=== PATIENT | male | born 1935 | race Caucasian/White ===

== ENCOUNTER → 2016-08-25 | Outpatient (CLI) | payer OTHER ==
[~2016-08-25] MED LIST: ASPI81TA28 PO; CHOL100027 PO; OLMETAB9 PO; PANT40TA PO; POTA1CAP2 PO
[2016-08-25 09:44] LABS: HEMATOCRIT 47.5 % (42-52); MEAN CELL VOLUME 94.6 fL (80-100); MEAN CORPUSCULAR HEMOGLOBIN 31.3 pg (25-34); MEAN CORPUSCULAR HGB CONC 33.1 g/dl (32-36); MEAN PLATELET VOLUME 9.3 fL (7.4-10.4); PLATELET COUNT 194 K/uL (130-400); RED BLOOD COUNT 5.02 M/uL (4.7-6.1); WHITE BLOOD COUNT 4.57 K/uL (4.8-10.8)
[2016-08-25 09:50] LABS: URINE APPEARANCE CLEAR (CLEAR); URINE BILIRUBIN NEG (NEG); URINE COLOR YELLOW; URINE NITRITE NEG (NEG); URINE SPECIFIC GRAVITY 1.021 (1.000-1.030); UROBILINOGEN NEG (NEG)
[2016-08-25 10:08] LABS: MANUAL MICROSCOPIC REQUIRED? NO; REVIEW REQ? NO
[2016-08-25 10:15] LABS: BLOOD UREA NITROGEN 26 mg/dl (7-18); BUN/CREATININE RATIO 17.5 (10-20); CALCIUM 8.6 mg/dl (8.5-10.1); CARBON DIOXIDE 25 mmol/L (21-32); CHLORIDE 109 mmol/L (98-107); GLUCOSE 95 mg/dl (70-99); MAGNESIUM 2.4 mg/dl (1.8-2.4); PHOSPHORUS 2.9 mg/dl (2.5-4.9); POTASSIUM 3.8 mmol/L (3.5-5.1); SODIUM 144 mmol/L (136-145)
== END | disposition home or self-care (01) ==
LOC: C.LAB1850 07:38
PROVIDERS: ATTEND Internal Medicine Nephrology
DX: N18.9 Chronic kidney disease, unspecified (principal)

== ENCOUNTER → 2017-03-15 | Outpatient (CLI) | payer OTHER ==
[2017-03-15 12:25] LABS: ALT/SGPT 24 U/L (12-78); AST/SGOT 15 U/L (15-37); BLOOD UREA NITROGEN 26 mg/dl (7-18); BUN/CREATININE RATIO 18.3 (10-20); CALCIUM 8.8 mg/dl (8.5-10.1); CARBON DIOXIDE 27 mmol/L (21-32); CHLORIDE 107 mmol/L (98-107); CREATININE 1.43 mg/dl (0.60-1.40); GLUCOSE 122 mg/dl (70-99); POTASSIUM 3.3 mmol/L (3.5-5.1); SODIUM 141 mmol/L (136-145)
[2017-03-15 12:26] LABS: ALKALINE PHOSPHATASE 64 U/L (45-117)
== END | disposition home or self-care (01) ==
LOC: C.LABBFT 10:36
PROVIDERS: ATTEND Internal Medicine
DX: Z00.00 Encounter for general adult medical examination without abnormal findings (principal); I12.9 Hypertensive chronic kidney disease with stage 1 through stage 4 chronic kidney disease, or unspecified chronic kidney disease; N18.9 Chronic kidney disease, unspecified

== ENCOUNTER → 2017-09-12 | Outpatient (CLI) | payer OTHER ==
[2017-09-12 13:14] LABS: BLOOD UREA NITROGEN 20 mg/dl (7-18); CALCIUM 8.7 mg/dl (8.5-10.1); CARBON DIOXIDE 26 mmol/L (21-32); CREATININE 1.57 mg/dl (0.60-1.40); GLUCOSE 88 mg/dl (70-99); POTASSIUM 3.8 mmol/L (3.5-5.1); SODIUM 139 mmol/L (136-145)
== END | disposition home or self-care (01) ==
LOC: C.LABBFT 09:58
PROVIDERS: ATTEND Internal Medicine
DX: Z00.00 Encounter for general adult medical examination without abnormal findings (principal); I12.9 Hypertensive chronic kidney disease with stage 1 through stage 4 chronic kidney disease, or unspecified chronic kidney disease; N18.9 Chronic kidney disease, unspecified

== ENCOUNTER 2021-11-18 05:15 | Inpatient (IN) ==
--- NOTE | 2021-11-15 16:03 | Anesthesiology Consultation ---
Date of Service November 15, 2021 Assessment & Plan (1) Encounter for pre-operative examination: - COVID screening: Per block mechanic on 11/15/2021: Travel screen negative, no known COVID-19 positive contacts or current COVID-19 related symptoms in past 2 weeks. Pt vaccinated. Surgeon arranging preop COVID testing, scheduled 11/16/2021. Awaiting results. Chart Review Chart Review: Acceptable Risk for Surgery and Patient NOT seen in Pre Admission Testing History Surgery Operation Date: 11/18/21 10:25 Proposed Procedures p Laparoscopic Sigmoid Colectomy - Nestor Grover DO s Open Umbilical Hernia Repair - Nestor Grover DO Height/Weight Height: 5 ft 9 in Weight: 77.111 kg Allergies Allergy/AdvReac Type Severity Reaction Status Date / Time No Known Drug Allergies Allergy Verified 11/15/21 15:37 Medications Home Medications Medication Instructions Recorded Confirmed Last Taken cholecalciferol (vitamin D3) 125 5,000 units PO DAILY cap 05/06/19 11/15/21 11/11/21 mcg (5,000 unit) capsule cyanocobalamin (vitamin B-12) 1,000 mcg IM MONTHLY ea 04/08/21 11/15/21 11/08/21 1,000 mcg/mL injection kit fluticasone propionate 50 See Rx Instructions INTRANASAL 08/23/21 11/15/21 11/11/21 mcg/actuation nasal DAILY #16 gm spray,suspension triamcinolone acetonide 0.1 % 1 applic TOPICAL DAILY PRN #30 g 08/23/21 11/15/21 11/08/21 topical cream potassium chloride 10 mEq 20 meq PO DAILY #180 cap 09/20/21 11/15/21 11/10/21 capsule,extended release polyethylene glycol 3350 17 17 g PO BID #238 g 11/12/21 11/15/21 Unknown gram/dose oral powder (Miralax) folic acid 1 mg tablet 1 mg PO QAM 11/15/21 11/15/21 Unknown olmesartan 40 mg-amlodipine 10 1 tab PO QAM 11/15/21 11/15/21 Unknown mg-hydrochlorothiazide 12.5 mg tablet Past Medical History Medical History Acid reflux disease CKD (chronic kidney disease) Colonic mass Essential tremor Hard of hearing History of squamous cell carcinoma w/ excision Hypertension Idiopathic polyneuropathy Sensorineural hearing loss of both ears Past Family History Family History Father Colorectal cancer Cancer Mother Hearing loss Brother Lung cancer Brother Prostate cancer Other No family history of adverse response to anesthesia No family history of bleeding disorder Past Surgical History Surgical History History of colonoscopy History of prostate surgery Dr. Mota 1999 History of tooth extraction Social History Smoking Status: Never smoker Do You Dip or Chew Tobacco: No Hx Alcohol Use: No Hx Substance Use: No substance use type: does not use Testing Electrocardiogram Date: 11/15/21 Sinus bradycardia, rate 57 bpm Left axis deviation Poor R wave progression, consider anterior OH vs lead placement vs LVH No significant change vs 12/23/2014 EKG
[2021-11-18] MEDS ORDERED: metroNIDAZOLE 500 MG/100 ML BAG IV SCH (06:00)
[2021-11-18] MEDS ORDERED: CIPROFLOXACIN / D5W 400 MG/200 ML BAG IV SCH (06:00)
[2021-11-18] MEDS ORDERED: HEPARIN SOD 5,000 UNIT/0.5 ML VIAL SQ SCH (06:00)
[2021-11-18] MEDS ORDERED: LR 15ML/HR IV SCH (06:00)
--- NOTE | 2021-11-18 06:59 | History & Physical Bridge Note ---
Date of Service November 18, 2021 History & Physical Bridge Note I have examined the patient, reviewed the History & Physical and in the interval since the performance of the History & Physical I have noted the following changes of clinical significance: no changes noted
[2021-11-18] MEDS ORDERED: ePHEDrine sulfate 50 MG/ML AMP IV PRN (07:00)
[2021-11-18] MEDS ORDERED: ONDANSETRON INJ 2 MG/ML 2 ML VIAL IV PRN (07:00)
[2021-11-18] MEDS ORDERED: ATROPINE SULFATE 0.1 MG/ML 10ML SYR IV PRN (07:00)
[2021-11-18] MEDS ORDERED: PROPOFOL IV EMULSION 10 MG/ML 20 ML VIAL IV ONE (07:03)
[2021-11-18] MEDS ORDERED: DEXAMETHASONE SOD INJ 4 MG/ML VIAL ONE (07:03)
[2021-11-18] MEDS ORDERED: LIDOCAINE 2% 20 MG/ML 5 ML SYR IV ONE (07:03)
[2021-11-18] MEDS ORDERED: ROCURONIUM BROMIDE 10 MG/ML 5 ML VIAL IV ONE ×3 (07:03→10:09)
[2021-11-18] MEDS ORDERED: ONDANSETRON INJ 2 MG/ML 2 ML VIAL ONE (07:03)
[2021-11-18] MEDS ORDERED: fentaNYL citrate 100 MCG/2 ML VIAL ONE ×2 (07:04→10:10)
[2021-11-18] MEDS ORDERED: BUPIVACAINE 0.5 % 5 MG/1 ML MPF 30ML VIAL ONE (07:12)
[2021-11-18] MEDS ORDERED: EPINEPHrine INJ 1 MG/ML AMP ONE (07:12)
[2021-11-18] MEDS ORDERED: GLYCOPYRROLATE 0.2 MG/ML VIAL ONE ×2 (08:42→10:32)
[2021-11-18] MEDS ORDERED: NEOSTIGMINE METHYLSULFATE 1 MG/ML 10ML VIAL ONE (10:32)
[2021-11-18] MEDS: fentaNYL citrate 100 MCG/2 ML VIAL IV PRN ×3 (11:25→11:35)
--- NOTE | 2021-11-18 11:57 | Anesthesiology Progress Note ---
Date of Service November 18, 2021 Anesthesia Post Procedure Vital Signs Vital Signs: Temp Pulse Pulse Resp BP BP Pulse Ox 11/18/21 11:40 97.3 F L 69 16 147/65 H 96 11/18/21 11:30 63 16 149/80 H 97 11/18/21 11:20 67 18 142/53 H 98 11/18/21 11:11 96.8 F L 72 14 148/74 H 97 11/18/21 06:04 97.7 F 57 L 18 157/92 H 97 O2 Del Method O2 Flow Rate 11/18/21 11:40 Nasal Cannula 3 11/18/21 11:30 Oxymask 5 11/18/21 11:20 Oxymask 5 11/18/21 11:11 Oxymask 5 11/18/21 06:04 Room Air Pain Intensity Abdomen: Pain Intensity: 5 Transfer of Care Handoff Completed per policy Notes Mental Status: alert / awake / arousable and participated in evaluation Patient Amnestic to Procedure: Yes Nausea / Vomiting: adequately controlled Pain: adequately controlled and improving with treatment Airway Patency, RR, SpO2: stable & adequate BP & HR: stable & adequate Hydration State: stable & adequate Anesthetic Complications: no major complications apparent and Pt Satisfied with anesthetic care
[2021-11-18] MEDS ORDERED: HYDROmorphone INJ 0.5 MG/0.5 ML SYR IV PRN (12:04)
[2021-11-18] MEDS: HYDROmorphone INJ 0.5 MG/0.5 ML SYR IV PRN ×2 (12:25→15:23)
[2021-11-18] MEDS: LACTATED RINGER'S 1,000 ML IV SCH (13:05)
[2021-11-18] MEDS: ACETAMINOPHEN 1,000 MG/100 ML VIAL IV SCH ×2 (13:07→22:13)
[2021-11-18] MEDS: metroNIDAZOLE 500 MG/100 ML BAG IV SCH ×2 (13:27→22:17)
--- NOTE | 2021-11-18 16:25 | Operative Report ---
PG Post Operative Report Pre & Post Diagnosis Operation Date: 11/18/21 07:15 Pre-Op Diagnosis: Colonic Mass, Umbilical Hernia Post-Op Diagnosis: Colonic Mass, Umbilical Hernia I identified the patient and participated in the time-out.: Yes Procedure Operation Date: 11/18/21 07:15 Actual Procedures p Laparoscopic Low Anterior Resection(Not Applicable) - Nestor Grover DO s Open Umbilical Hernia Repair(Not Applicable) - Nestor Grover DO Surgeon Nestor Grover DO Inspector Soldering esha Torres Estimated Blood Loss 50 Findings Consistent with Post-Op Diagnosis Specimens 1. sigmoid/rectosigmoid colon 2. additional proximal margins 3. additional distal margins Description of Procedure After informed consent was obtained the patient was taken to the operating room and placed in supine position. After successful intubation the patient was placed in the low lithotomy position. The abdomen was shaved. The perineum as well as the abdomen were sterilely prepped and draped in usual fashion. I began with a supraumbilical incision 11 blade scalpel. This was carried down through the soft tissues and cautery. We took down the umbilical stalk using cautery exposing a small garden-variety umbilical defect. I excised the hernia sac in 360 degrees. I then placed two #0 Vicryl stay sutures on either side of the defect. A 12 mm on trocar was placed and the abdomen insufflated to 18 mmHg. Laparoscope was inserted and the abdomen examined in 360 degrees. There was no evidence of any metastatic disease. A right lower quadrant 12 mm port a right mid abdominal 5 mm port and a left lower quadrant 5 mm port were all placed under direct vision. The patient was then placed in a steep Trendelenburg position. I was able to to readily identify both tattoo dyson. 1 was proximal to the mass and one was distal to the mass. The distal kizzy was more distal than I thought and was in the region of the rectosigmoid. I began by using traction countertraction and the harmonic scalpel to take down the white line of [place] laterally. I carried this superiorly almost to the splenic flexure. I carried it distally down over the sacral promontory down past the peritoneal reflection onto the rectum itself. Once we had this mobilized I then took down the mesentery starting at the proximal tattoo kizzy. Again I used a harmonic scalpel to take down this mesentery down to the rectum itself. I used several firings of a MIKE purple cartridge linear stapler to transect the colon just proximal to the proximal tattoo kizzy. Once we did this this allowed me to mobilize the specimen better. I continued to use a harmonic scalpel to take down the mesentery staying as low as possible. The mesentery itself was rather thick. There was a lot of fat wrapping. There were also a large amount of diverticuli. Eventually I was able to transect the colon just distal to the distal tattoo kizzy again using MIKE purple cartridge linear staplers. The remaining left colon was able to easily reach down over the sacral promontory without tension. Next we extended the left lower quadrant incision after removing the trocar. We also divided the fascia and were able to deliver the specimen. I did open it on the back table to ensure that we had enough proximal and distal margins. It appeared we had negative margins grossly. I changed my gloves. Next we delivered the proximal staple line out through the same incision. I used 2-0 silk to create a handsewn pursestring device. We ended up doing this several times as we kept encountering diverticuli which will be incorporated in the anastomosis. We kept excising proximal colon and sent this as additional proximal margin. Eventually I was able to get a pursestring w ithout incorporating any diverticuli. We estimated the size of the lumen to be 28 mm. A 28 mm anvil was placed into the end of the colon and the pursestring secured. The end was placed back down into the abdominal cavity. We changed our gloves again. We then closed the fascia using 0 PDS in running fashion. We reinsufflated the abdomen. We used sizers to come in the rectal stump followed by the handle of the 28 mm circular stapler. The spike was deployed anterior to the rectal stump staple line. I then connected the anvil to the handle. They were secured together. Again there did not appear to be any tension on the anastomosis. The stapler was fired creating a functional end-to-end anastomosis. Both donuts were intact. We did send the distal donut as additional distal margin. I inflated the anastomosis under water with a rigid proctoscope. There was no evidence of an anastomotic leak. There was adequate hemostasis. We thoroughly irrigated the pelvis and lower abdomen. A 10 flat David-Diaz drain was brought in through one of the port sites secured to the skin using 2-0 silk. It was placed over the pelvic brim. No other abnormalities were identified. The remainder of the trochars were removed. The umbilical hernia was closed using 0 Vicryl in simple interrupted fashion. The umbilical stalk was reattached using 0 Vicryl as well. Wounds were irrigated and closed using skin zachary. Left lower quadrant incision was closed over quarter inch [place] drain. Sterile dressings were applied. The patient was awakened extubated and transferred recovery in stable condition. My physician assistant corporation counsel was present for the entire case. He was instrumental in assisting throughout the case running the camera assisting with the anastomosis wound closure and dressing placement. I attest to the content of the Intraoperative Record and any orders documented therein. Any exceptions are noted below.
[2021-11-18] MEDS: CIPROFLOXACIN / D5W 400 MG/200 ML BAG IV SCH (18:51)
[2021-11-19] MEDS: LACTATED RINGER'S 1,000 ML IV SCH ×4 (03:35→21:02)
[2021-11-19] MEDS: ACETAMINOPHEN 1,000 MG/100 ML VIAL IV SCH ×3 (05:42→21:02)
[2021-11-19] MEDS: metroNIDAZOLE 500 MG/100 ML BAG IV SCH (05:43)
[2021-11-19] MEDS: CIPROFLOXACIN / D5W 400 MG/200 ML BAG IV SCH (06:11)
[2021-11-19 07:32] LABS: Basophils # (auto) 0.02 K/uL (0-0.2); Basophils % (auto) 0.2 %; Eosinophils # (auto) 0.01 K/uL (0-0.50); Eosinophils % (auto) 0.1 %; Hematocrit (blood only) 38.9 % (40.1-51.0); Hemoglobin 12.8 g/dl (14.0-18.0); Immature Granulocytes # (auto) 0.04 K/uL (0.00-0.02); Immature Granulocytes % (auto) 0.4 %; Lymphocytes # (auto) 1.16 K/uL (1.2-3.4); Lymphocytes % (auto) 11.3 %; Mean Corpuscular Hgb Conc 32.9 g/dL (32.0-36.0); Mean Corpuscular Volume 91.1 fL (80.0-100.0); Mean Platelet Volume 9.1 fL (9.4-12.4); Monocytes # (auto) 0.73 K/uL (0.24-0.82); Monocytes % (auto) 7.1 %; Neutrophils # (auto) 8.32 K/uL (1.4-6.5); Neutrophils % (auto) 80.9 %; Platelet Count 171 K/uL (130-400); RDW Standard Deviation 42.9 fL (36.4-46.3); Red Blood Count 4.27 M/uL (4.63-6.08); White Blood Count 10.28 K/ul (4.8-10.8)
[2021-11-19 07:57] LABS: BUN Creatinine Ratio 13.4 (10-20); Creatinine Clr Calc Pharmacy 33.8 ml/min; Est GFR (African American) 45.6 ml/min; Est GFR (Non-African American) 39.3 ml/min; Potassium 3.6 mmol/L (3.5-5.1)
[2021-11-19] MEDS: ENOXAPARIN INJ 30 MG/0.3 ML SYR SQ SCH (08:20)
--- NOTE | 2021-11-19 10:10 | Surgery Progress Note ---
Date of Service November 19, 2021 Assessment & Plan (1) Colonic mass: Plan: POD 1 lap LAR Slight drop in H&H, vitals stable can start clears consider removing buenrostro later or in AM as above. doing great. keep buenrostro one more day stay on clears until bowel fx Dr. Beverly covering for weekend. Admission and Anticipated Discharge Date Admission Date: November 18, 2021 Subjective little nausea, minimal pain, anxious to get moving Physical Exam Constitutional: WD/WN, vitals as above Gastrointestinal (Abdomen): Inspection/Auscultation: + abdominal surgical incision (dressing dry) and + abdominal surgical drain present (20 cc overnight); abdomen not distended Percussion/Palpation: abdomen soft UOP 250 overnight Results & Data ([facility]) Vital Signs (Past 12 Hours) Vital Signs Temp Pulse Resp BP Pulse Ox 11/19/21 07:44 36.3 C L 56 L 16 124/70 94 PG Care Time/CCT Total # of Minutes Spent Total Time Spent with Patient: Total time spent is greater than 50% in coordination of care (as documented) at patient's floor/unit and/or counseling patient: Coding Level of Care Code None Diagnoses Colonic mass K63.89
[2021-11-20] MEDS: ONDANSETRON INJ 2 MG/ML 2 ML VIAL IV PRN ×3 (01:29→12:14)
[2021-11-20] MEDS: LACTATED RINGER'S 1,000 ML IV SCH (05:25)
[2021-11-20] MEDS: ACETAMINOPHEN 1,000 MG/100 ML VIAL IV SCH (05:25)
[2021-11-20 07:28] LABS: Basophils # (auto) 0.01 K/uL (0-0.2); Basophils % (auto) 0.1 %; Eosinophils % (auto) 1.2 %; Hematocrit (blood only) 37.9 % (40.1-51.0); Hemoglobin 12.4 g/dl (14.0-18.0); Immature Granulocytes # (auto) 0.06 K/uL (0.00-0.02); Immature Granulocytes % (auto) 0.7 %; Lymphocytes # (auto) 0.91 K/uL (1.2-3.4); Lymphocytes % (auto) 10.5 %; Mean Corpuscular Hemoglobin 31.1 pg (25.0-34.0); Mean Corpuscular Hgb Conc 32.7 g/dL (32.0-36.0); Mean Platelet Volume 9.3 fL (9.4-12.4); Monocytes # (auto) 0.59 K/uL (0.24-0.82); Monocytes % (auto) 6.8 %; Neutrophils # (auto) 6.99 K/uL (1.4-6.5); Neutrophils % (auto) 80.7 %; Platelet Count 165 K/uL (130-400); RDW Coefficient of Variation 13.2 % (11.5-14.5); RDW Standard Deviation 45.7 fL (36.4-46.3); Red Blood Count 3.99 M/uL (4.63-6.08); White Blood Count 8.66 K/ul (4.8-10.8)
[2021-11-20] MEDS: ENOXAPARIN INJ 30 MG/0.3 ML SYR SQ SCH (07:37)
[2021-11-20 07:47] LABS: Creatinine Clr Calc Pharmacy 39.9 ml/min; Est GFR (African American) 55.7 ml/min; Est GFR (Non-African American) 48.1 ml/min; Potassium 3.5 mmol/L (3.5-5.1)
[2021-11-20] MEDS: NSS + 20MEQ KCL 20 MEQ/1,000 ML BAG IV SCH (10:10)
--- NOTE | 2021-11-20 13:28 | Surgery Progress Note ---
Date of Service November 20, 2021 Assessment & Plan (1) Colonic mass: Plan: F/U S/P Laparoscopic Low Anterior Resection,Open Umbilical Hernia Repair, POD 2 pt is doing fine, passed gas and 2 small BM today, little nausea, no vomiting, no fever, plan, D/C jesús, continue treatment, repeat labs in morning, OOB, will F/U, Admission and Anticipated Discharge Date Admission Date: November 18, 2021 Subjective little nausea, minimal pain, anxious to get moving 11/20/2021, DR. Beverly F/U S/P Laparoscopic Low Anterior Resection,Open Umbilical Hernia Repair, POD 2 pt is doing fine, passed gas and 2 small BM today, little nausea, no vomiting, no fever, Physical Exam Constitutional: WD/WN, vitals as above Eyes: PERRL, conjunctivae normal, anicteric sclerae Neck: trachea midline, no thyromegaly Respiratory: normal respiratory effort, lungs clear to auscultation Cardiovascular: RRR, no murmur, no edema Gastrointestinal (Abdomen): soft, no tenderness, all incisions intact, no redness, BS + Neurologic: patellar DTR's 2+ bilat, sensation intact Psychiatric: A+Ox3, euthymic affect Results & Data ([facility]) Vital Signs (Past 12 Hours) Vital Signs Temp Pulse Resp BP Pulse Ox O2 Del Method 11/20/21 07:17 36.9 C 58 L 20 159/81 H 94 Room Air Laboratory Results Abnormal lab results 11/20/21 11/20/21 Range/Units 06:59 06:59 RBC 3.99 L (4.63-6.08) M/uL Hgb 12.4 L (14.0-18.0) g/dl Hct 37.9 L (40.1-51.0) % MPV 9.3 L (9.4-12.4) fL Neut # (Auto) 6.99 H (1.4-6.5) K/uL Lymph # (Auto) 0.91 L (1.2-3.4) K/uL Immature Gran # (Auto) 0.06 H (0.00-0.02) K/uL Glucose 101 H (70-99(Fasting)) mg/dl Calcium 8.0 L (8.5-10.1) mg/dl
[2021-11-20] MEDS: HYDROmorphone INJ 0.5 MG/0.5 ML SYR IV PRN ×2 (15:22→22:55)
[2021-11-21] MEDS: NSS + 20MEQ KCL 20 MEQ/1,000 ML BAG IV SCH (05:35)
[2021-11-21 07:34] LABS: Basophils # (auto) 0.02 K/uL (0-0.2); Basophils % (auto) 0.3 %; Eosinophils # (auto) 0.25 K/uL (0-0.50); Hemoglobin 11.3 g/dl (14.0-18.0); Immature Granulocytes # (auto) 0.01 K/uL (0.00-0.02); Immature Granulocytes % (auto) 0.2 %; Lymphocytes # (auto) 0.93 K/uL (1.2-3.4); Mean Corpuscular Hemoglobin 31.2 pg (25.0-34.0); Mean Corpuscular Hgb Conc 32.3 g/dL (32.0-36.0); Mean Corpuscular Volume 96.7 fL (80.0-100.0); Mean Platelet Volume 9.2 fL (9.4-12.4); Monocytes % (auto) 8.1 %; Neutrophils # (auto) 4.49 K/uL (1.4-6.5); Neutrophils % (auto) 72.4 %; Platelet Count 146 K/uL (130-400); RDW Coefficient of Variation 13.1 % (11.5-14.5); RDW Standard Deviation 46.5 fL (36.4-46.3); Red Blood Count 3.62 M/uL (4.63-6.08)
[2021-11-21] MEDS: ENOXAPARIN INJ 30 MG/0.3 ML SYR SQ SCH (08:05)
[2021-11-21] MEDS: ONDANSETRON INJ 2 MG/ML 2 ML VIAL IV PRN ×3 (08:06→17:16)
[2021-11-21 09:13] LABS: BUN Creatinine Ratio 9.8 (10-20); Calcium 7.8 mg/dl (8.5-10.1); Creatinine Clr Calc Pharmacy 43.1 ml/min; Est GFR (African American) 61.2 ml/min; Est GFR (Non-African American) 52.8 ml/min; Potassium 3.6 mmol/L (3.5-5.1)
--- NOTE | 2021-11-21 12:33 | Surgery Progress Note ---
Date of Service November 21, 2021 Assessment & Plan (1) Colonic mass: Plan: F/U S/P Laparoscopic Low Anterior Resection,Open Umbilical Hernia Repair, POD 2 pt is doing fine, passed gas and 2 small BM today, little nausea, no vomiting, no fever, plan, D/C lilianey, continue treatment, repeat labs in morning, OOB, will F/U, 11/21/2021 12:31PM F/U S/P Laparoscopic Low Anterior Resection,Open Umbilical Hernia Repair, POD 3 pt is doing fine, passed gas, little nausea, no vomiting, no fever, plan, full liquid diet continue treatment, repeat labs in morning, OOB, will F/U, Admission and Anticipated Discharge Date Admission Date: November 18, 2021 Subjective little nausea, minimal pain, anxious to get moving 11/20/2021, DR. Beverly F/U S/P Laparoscopic Low Anterior Resection,Open Umbilical Hernia Repair, POD 2 pt is doing fine, passed gas and 2 small BM today, little nausea, no vomiting, no fever, 11/21/2021 12:29PM, Dr. Beverly F/U S/P Laparoscopic Low Anterior Resection,Open Umbilical Hernia Repair, POD 3 pt is doing fine, tolerated clear diet, no vomiting, passed gas, no fever, Physical Exam Constitutional: WD/WN, vitals as above Eyes: PERRL, conjunctivae normal, anicteric sclerae Neck: trachea midline, no thyromegaly Respiratory: normal respiratory effort, lungs clear to auscultation Cardiovascular: RRR, no murmur, no edema Gastrointestinal (Abdomen): soft, mild distend, no tenderness, BS +, Neurologic: patellar DTR's 2+ bilat, sensation intact Psychiatric: A+Ox3, euthymic affect Results & Data ([facility]) Vital Signs (Past 12 Hours) Vital Signs Temp Pulse Resp BP Pulse Ox O2 Del Method 11/21/21 07:32 36.7 C 56 L 20 152/70 H 93 Room Air Laboratory Results Abnormal lab results 11/21/21 11/21/21 Range/Units 06:50 08:45 RBC 3.62 L (4.63-6.08) M/uL Hgb 11.3 L (14.0-18.0) g/dl Hct 35.0 L (40.1-51.0) % RDW Std Deviation 46.5 H (36.4-46.3) fL MPV 9.2 L (9.4-12.4) fL Lymph # (Auto) 0.93 L (1.2-3.4) K/uL Chloride 108 H (98-107) mmol/L Anion Gap 2 L (3-11) BUN/Creatinine Ratio 9.8 L (10-20) Glucose 127 H (70-99(Fasting)) mg/dl Calcium 7.8 L (8.5-10.1) mg/dl
[2021-11-22] MEDS: HYDROmorphone INJ 0.5 MG/0.5 ML SYR IV PRN (00:13)
[2021-11-22] MEDS: NSS + 20MEQ KCL 20 MEQ/1,000 ML BAG IV SCH (00:13)
[2021-11-22] MEDS: ENOXAPARIN INJ 30 MG/0.3 ML SYR SQ SCH (08:10)
[2021-11-22] MEDS: ONDANSETRON INJ 2 MG/ML 2 ML VIAL IV PRN (08:10)
--- NOTE | 2021-11-22 08:21 | Surgery Progress Note ---
Date of Service November 22, 2021 Assessment & Plan (1) Colonic mass: Plan: POD 4 lap LAR labs pending will advance to full liquids stop IVF As above. Had some loose bowel movements over the weekend. Feeling well. Potential discharge tomorrow or Monday. CRISTI with scant serous fluid Admission and Anticipated Discharge Date Admission Date: November 18, 2021 Subjective flatus, some liquid BM, tolerating clears Physical Exam Gastrointestinal (Abdomen): Inspection/Auscultation: + abdomen distended, + abdominal surgical incision (dry) and + abdominal surgical drain present (20-25 per shift) Percussion/Palpation: abdomen soft Results & Data ([facility]) Vital Signs (Past 12 Hours) Vital Signs Temp Pulse Pulse Resp BP Pulse Ox O2 Del Method 11/22/21 07:33 36.8 C 51 L 16 164/74 H 97 Room Air 11/21/21 23:19 36.6 C 53 L 18 154/75 H 96 Room Air PG Care Time/CCT Total # of Minutes Spent Total Time Spent with Patient: Total time spent is greater than 50% in coordination of care (as documented) at patient's floor/unit and/or counseling patient: Coding Level of Care Code None Diagnoses Colonic mass K63.89
[2021-11-22] MEDS ORDERED: HYDROCODONE/ACETAMOPHEN 5/325MG TAB PO PRN ×2 (08:24)
[2021-11-22 09:20] LABS: Basophils # (auto) 0.02 K/uL (0-0.2); Basophils % (auto) 0.4 %; Eosinophils # (auto) 0.31 K/uL (0-0.50); Eosinophils % (auto) 5.6 %; Hemoglobin 12.9 g/dl (14.0-18.0); Immature Granulocytes # (auto) 0.01 K/uL (0.00-0.02); Immature Granulocytes % (auto) 0.2 %; Lymphocytes # (auto) 0.84 K/uL (1.2-3.4); Lymphocytes % (auto) 15.2 %; Mean Corpuscular Hemoglobin 30.6 pg (25.0-34.0); Mean Corpuscular Hgb Conc 32.3 g/dL (32.0-36.0); Mean Corpuscular Volume 94.8 fL (80.0-100.0); Mean Platelet Volume 9.5 fL (9.4-12.4); Monocytes # (auto) 0.23 K/uL (0.24-0.82); Monocytes % (auto) 4.2 %; Neutrophils % (auto) 74.4 %; Platelet Count 181 K/uL (130-400); RDW Coefficient of Variation 13.1 % (11.5-14.5); RDW Standard Deviation 45.6 fL (36.4-46.3); Red Blood Count 4.22 M/uL (4.63-6.08); White Blood Count 5.51 K/ul (4.8-10.8)
[2021-11-22] MEDS: amLODIPine BESYLATE 5 MG TAB PO SCH (09:28)
[2021-11-22] MEDS: POTASSIUM CHLORIDE CRTAB 20 MEQ TABCR PO SCH (09:29)
[2021-11-22] MEDS: OLMESARTAN MEDOXOMIL 40 MG TAB PO SCH (09:29)
[2021-11-22 09:36] LABS: BUN Creatinine Ratio 8.3 (10-20); Calcium 7.7 mg/dl (8.5-10.1); Creatinine Clr Calc Pharmacy 43.8 ml/min; Est GFR (African American) 62.5 ml/min; Est GFR (Non-African American) 53.9 ml/min; Potassium 3.5 mmol/L (3.5-5.1)
[2021-11-23] MEDS: amLODIPine BESYLATE 5 MG TAB PO SCH (08:21)
[2021-11-23] MEDS: OLMESARTAN MEDOXOMIL 40 MG TAB PO SCH (08:21)
[2021-11-23] MEDS: POTASSIUM CHLORIDE CRTAB 20 MEQ TABCR PO SCH (08:21)
[2021-11-23] MEDS: ENOXAPARIN INJ 30 MG/0.3 ML SYR SQ SCH (08:21)
--- NOTE | 2021-11-23 08:48 | Surgery Progress Note ---
Date of Service November 23, 2021 Assessment & Plan (1) Colonic mass: Plan: POD 5 lap LAR Patient clinically doing well + bowel function noted will advance to low fiber today, should continue this diet over next few weeks CRISTI serosang, will d/c both CRISTI and abigail today If pain controlled and tolerates diet may dispo to home this afternoon Pathology results reviewed by Dr. Grover Went over dispo instructions with pt in detail. f/u in clinic with Dr. Grover next week Admission and Anticipated Discharge Date Admission Date: November 18, 2021 Subjective Patient is feeling well. Tolerating liquid diet. Saying he feels ready to go home. Physical Exam Physical Exam: awake/alert Gastrointestinal (Abdomen): Inspection/Auscultation: + abdominal surgical incision (c/d/i) Percussion/Palpation: abdomen soft CRISTI serosang. abigail in place Results & Data ([facility]) Vital Signs (Past 12 Hours) Vital Signs Temp Pulse Resp BP Pulse Ox O2 Del Method 11/23/21 07:23 36.8 C 52 L 16 142/74 H 96 Room Air 11/22/21 23:00 36.6 C 50 L 18 137/70 94 Room Air PG Care Time/CCT Total # of Minutes Spent Total Time Spent with Patient: Total time spent is greater than 50% in coordination of care (as documented) at patient's floor/unit and/or counseling patient: Coding Level of Care Code None Diagnoses Colonic mass K63.89
--- NOTE | 2021-11-24 13:36 | Discharge Summary ---
Date of Service November 23, 2021 Principal Diagnosis Rectosigmoid cancer Discharge Exam Constitutional WD/WN, vitals as above Gastrointestinal (Abdomen) Inspection/Auscultation: + abdominal surgical incision (no erythema); abdomen not distended Percussion/Palpation: abdomen soft Discharge Data Allergies Allergy/AdvReac Type Severity Reaction Status Date / Time No Known Drug Allergies Allergy Verified 11/15/21 15:37 Procedures Performed Operation Date: 11/18/21 07:15 Actual Procedures p Laparoscopic Low Anterior Resection(Not Applicable) - Nestor Grover DO s Open Umbilical Hernia Repair(Not Applicable) - Nestor Grover DO Hospital Course (1) Colonic mass: 86 y/o male with mass of sigmoid colon was taken to the operating room for laparoscopic resection. He was transferred to the surgical floor. Clear liquids and subQ Lovenox were started on day one. Driver was removed on day two. By day three he has having liquid bowel movements and was advanced to full liquid diet. He continued to increase diet and activity over day 4 and on day 5 was tolerating regular diet. He was stable for discharge home in the afternoon. Total Time Total Time Spent Total Time Spent (In Minutes): 15 Discharge Plan Discharge Items Patient Disposition: Home - Self-Care Reason For Visit: Colonic Mass, Umbilical Hernia Discharge Diagnosis: sigmoid colon resection umbilical hernia repair Activity: Per Instructions section Lifting: No more than 10 pounds Bathing Comment: may shower; no soaking in tubs/pools Exercise/Sports: Wait until after follow-up appointment Driving/Machine Use: wait at least 1 week; no driving while taking narcotics for pain Non-emergency contact: Surgeon Call non-emergency contact if: you have any medication questions, your symptoms worsen, you have a fever, your temperature is above 101.5, your wound has increased redness, your wound has increased drainage and your wound pain has increased Follow-up/Referrals: Beth Kim MD [Primary Care Provider] - Nestor Grover DO [Surgeon] - 11/30/21 9:15 am () Diet: Low Fiber Diet Comment: low fiber Addtl Attending Provider Instructions: Please continue on a low fiber diet over the next couple of weeks You may cover the sites where your drains were with dry 4x4 gauze and medical tape until they are healed and no longer draining fluid. Change dressings daily and as needed. You may purchase Ibuprofen over the counter if needed for pain control over the next few days. Ibuprofen 400mg-600mg orally every 6-8 hours, as needed for pain. Take with food. Pending Studies at Discharge: Yes Studies:: surgical pathology Stand-Alone Forms: My [facility] Medications and DC Order Prescriptions: New hydrocodone-acetaminophen 5-325 mg tablet 1 - 2 tab PO .q4h- q6h PRN (Reason: pain, for initial therapy, max 6 tabs per day ) Qty: 15 0RF Continued fluticasone propionate 50 mcg/actuation spray,suspension See Rx Instructions intranasal DAILY Qty: 16 5RF Rx Instructions: 2 sprays intranasal daily; triamcinolone acetonide 0.1 % cream 1 applic topical DAILY PRN (Reason: skin irritation) Qty: 30 1RF Rx Instructions: Apply and rub in a thin film to affected areas once a day potassium chloride 10 mEq capsule, extended release 20 meq PO DAILY Qty: 180 3RF cholecalciferol (vitamin D3) 5,000 unit capsule 5,000 units PO DAILY cyanocobalamin (vitamin B-12) 1,000 mcg/mL kit 1,000 mcg IM MONTHLY folic acid 1 mg tablet 1 mg PO QAM cfmnialkej-rkzazivce-gxokdsssy 40-10-12.5 mg tablet 1 tab PO QAM polyethylene glycol 3350 [Miralax] 17 gram/dose powder 17 g PO BID Qty: 238 1RF Discharge Orders: Discharge Order (Routine); Ordered 11/23/21 Ordered By: Britney Manriquez/Other Patient Handouts: Low-Fiber Diet Admission Data Admit Date/Time: 11/18/21 11:12 Attending Provider: Nestor Grover Admit Provider: Nestor Grover Primary Care Provider: Beth Kim Other Interventions: Discharge Summary Assessment (RN) Last Done: 11/23/21 11:44 Coding Level of Care Code D/C DAY MANAGEMENT <30 MINS Diagnoses Colonic mass K63.89
== END 2021-11-23 13:57 | disposition home or self-care (01) | DRG 331 ==
LOC: ASU 05:15 → 3N 11:12